=== PATIENT | female | born 1960 | race Caucasian/White ===

== ENCOUNTER → 2018-10-25 | Outpatient (CLI) | payer OTHER ==
[~2018-10-25] MED LIST: CEFD300C PO; FLUO40CA9 PO; HYDR-2155 PO; LOSA100T14 PO; OMEP20TA63 PO; OXYB5TAB7 PO
--- NOTE | 2018-10-25 12:59 | RAD ---
EXAM: Lumbar spine, 5 views. HISTORY: Pain. COMPARISON: None. FINDINGS: 5 views of the lumbar spine are obtained. There are 5 nonrib-bearing lumbar vertebral segments. There is no significant listhesis. There is degenerative endplate remodeling at all levels, predominantly at L5-S1. There is associated disc space narrowing and advanced facet arthropathy at this level. No fracture is seen. There is aortic and aortic branch vessel atherosclerosis. IMPRESSION: 1. Multilevel degenerative change involving the lumbar spine, primarily at the lumbosacral junction. 2. No acute osseous finding. Electronically signed by: Bushra Haq MD (10/25/2018 12:56 PM) [facility]
== END | disposition home or self-care (01) ==
LOC: PMG 12:05
PROVIDERS: ATTEND Physician Assistant
DX: M47.896 Other spondylosis, lumbar region (principal); M47.897 Other spondylosis, lumbosacral region; I70.0 Atherosclerosis of aorta; M48.061 Spinal stenosis, lumbar region without neurogenic claudication; M12.88 Other specific arthropathies, not elsewhere classified, other specified site
CPT/HCPCS: 72110

== ENCOUNTER 2018-12-15 12:05 | Inpatient (IN) | payer OTHER ==
[~2018-12-15] VITALS: Ht 157.5 cm; Wt 138.8 kg
[2018-12-15] MEDS ORDERED: ASPIRIN 81 MG TAB.CHEW ONE (12:38)
[2018-12-15] MEDS ORDERED: IV NORMAL SALINE 1,000ML 1,000 ML IV SCH (12:39)
[2018-12-15] MEDS ORDERED: ASPIRIN 81 MG TAB.CHEW PO ONE (13:00)
[2018-12-15 13:06] LABS: BASO % 0 % (0-3); EOS # 0.2 x10^3/uL (0.0-0.7); EOS % 4 % (0-3); HEMATOCRIT 39.5 % (36.0-47.0); HEMOGLOBIN 13.3 g/dL (12.0-15.5); LYMPH # 1.8 x10^3/uL (1.0-4.8); LYMPH % 29 % (24-48); MEAN CORPUSCULAR HEMOGLOBIN 29 pg (25-35); MEAN CORPUSCULAR HGB CONC 34 g/dL (31-37); MEAN CORPUSCULAR VOLUME 85 fL (79-100); MONO # 0.4 x10^3/uL (0.0-1.1); MONO % 7 % (0-9); NEUT # 3.7 x10^3uL (1.8-7.7); NEUT % 60 % (31-73); PLATELET COUNT 206 x10^3/uL (140-400); RED BLOOD COUNT 4.62 x10^6/uL (3.50-5.40); RED CELL DISTRIBUTION WIDTH 13.5 % (11.5-14.5); WHITE BLOOD COUNT 6.2 x10^3/uL (4.0-11.0)
--- NOTE | 2018-12-15 13:22 | RAD ---
PORTABLE CHEST 1V Clinical Indication: Chest pain Comparison: None. Findings: There is no mediastinal widening. The cardiac size is normal. Lungs are clear. There is no pneumothorax. No pleural effusion is appreciated. No acute bone abnormality. IMPRESSION: No acute cardiopulmonary process. Electronically signed by: Bhavin Zee MD (12/15/2018 1:19 PM) [id number]
[2018-12-15 13:28] LABS: ALBUMIN 3.3 g/dL (3.4-5.0); ALBUMIN/GLOBULIN RATIO 0.9 (1.0-1.7); ALK PHOS 104 U/L (46-116); ALT (SGPT) 30 U/L (14-59); ANION GAP 10 (6-14); AST (SGOT) 32 U/L (15-37); BLOOD UREA NITROGEN 15 mg/dL (7-20); BUN/CREATININE RATIO 17 (6-20); CARBON DIOXIDE 27 mmol/L (21-32); CHLORIDE 102 mmol/L (98-107); CREATININE 0.9 mg/dL (0.6-1.0); GFR 64.5; GLUCOSE 122 mg/dL (70-99); LIPASE 52 U/L (73-393); MAGNESIUM 1.8 mg/dL (1.8-2.4); POTASSIUM 4.5 mmol/L (3.5-5.1); SODIUM 139 mmol/L (136-145); TOTAL BILIRUBIN 0.4 mg/dL (0.2-1.0)
--- NOTE | 2018-12-15 13:33 | PHYS DOC ---
Past History Past Medical History: Bipolar, Depression, GERD, Hypertension, Other Past Surgical History: Cholecystectomy, Tubal ligation, Other Additional Smoking Information: vapes Drug Use: None Social History Narrative: hx meth use Adult General Chief Complaint Chief Complaint: CHEST PAIN HPI HPI Patient is a 58 year old female who presents with complaint of chest pain and shortness of breath. Patient states that her symptoms started 1 week ago. Patient states that she awoke this morning after claiming to have slept for 2 days straight and states that she is still having chest pain. Also notes upper abdominal pain. Has history of hypertension. Denies previous history of heart attack but does admit to family history of heart attack. States her pain is currently 3 out of 10. Has not taking medications for her symptoms. Currently staying at a care home house. Was recently released from senior living 2 months ago. History of methamphetamine use. States that she has not used methamphetamine since being released from senior living. States that she does feel short of breath at this time. No history of asthma or bronchitis. Review of Systems Review of Systems Constitutional: Denies fever or chills [] Eyes: Denies change in visual acuity, redness, or eye pain [] HENT: Denies nasal congestion or sore throat [] Respiratory: Shortness of breath[] Cardiovascular: Chest pain[] GI: Abdominal pain, nausea, denies vomiting, bloody stools or diarrhea [] : Denies dysuria or hematuria [] Musculoskeletal: Denies back pain or joint pain [] Integument: Denies rash or skin lesions [] Neurologic: Denies headache, focal weakness or sensory changes [] All other systems were reviewed and found to be within normal limits, except as documented in this note. Current Medications Current Medications Current Medications Medications (Trade) Dose Ordered Sig/Girma Start Time Stop Time Status Last Admin Dose Admin Aspirin (Children'S Aspirin) 324 mg 1X ONCE 12/15/18 13:00 12/15/18 13:02 DC 12/15/18 13:01 324 MG Sodium Chloride 1,000 ml @ 125 mls/hr Q8H 12/15/18 12:39 12/15/18 20:38 12/15/18 12:57 125 MLS/HR Allergies Allergies Allergies Coded Allergies Type Severity Reaction Last Updated Verified No Known Drug Allergies 12/15/18 No Physical Exam Physical Exam Constitutional: Alert, afebrile, appears anxious and in mild to moderate discomfort. [] HENT: Normocephalic, atraumatic, bilateral external ears normal, oropharynx moist, no oral exudates, nose normal. [] Eyes: PERRLA, EOMI, conjunctiva normal, no discharge. [] Neck: Normal range of motion, no tenderness, supple, no stridor. [] Cardiovascular:Heart rate regular rhythm, no murmur [] Lungs & Thorax: Bilateral breath sounds clear to auscultation [] Abdomen: Bowel sounds normal, soft, no tenderness, no masses, no pulsatile masses. [] Skin: Warm, dry, no erythema, no rash. [] Back: No tenderness, no CVA tenderness. [] Extremities: No tenderness, no cyanosis, no clubbing, ROM intact, no edema. [] Neurologic: Alert and oriented X 3, normal motor function, normal sensory function, no focal deficits noted. [] Current Patient Data Vital Signs Vital Signs Date Time Temp Pulse Resp B/P (MAP) Pulse Ox O2 Delivery O2 Flow Rate FiO2 12/15/18 13:25 71 20 100/44 (62) 97 Room Air 12/15/18 12:26 97.8 Lab Results Laboratory Tests Test 12/15/18 12:50 White Blood Count 6.2 x10^3/uL (4.0-11.0) Red Blood Count 4.62 x10^6/uL (3.50-5.40) Hemoglobin 13.3 g/dL (12.0-15.5) Hematocrit 39.5 % (36.0-47.0) Mean Corpuscular Volume 85 fL (79-100) Mean Corpuscular Hemoglobin 29 pg (25-35) Mean Corpuscular Hemoglobin Concent 34 g/dL (31-37) Red Cell Distribution Width 13.5 % (11.5-14.5) Platelet Count 206 x10^3/uL (140-400) Neutrophils (%) (Auto) 60 % (31-73) Lymphocytes (%) (Auto) 29 % (24-48) Monocytes (%) (Auto) 7 % (0-9) Eosinophils (%) (Auto) 4 % (0-3) H Basophils (%) (Auto) 0 % (0-3) Neutrophils # (Auto) 3.7 x10^3uL (1.8-7.7) Lymphocytes # (Auto) 1.8 x10^3/uL (1.0-4.8) Monocytes # (Auto) 0.4 x10^3/uL (0.0-1.1) Eosinophils # (Auto) 0.2 x10^3/uL (0.0-0.7) Basophils # (Auto) 0.0 x10^3/uL (0.0-0.2) Troponin I Quantitative < 0.017 ng/mL (0-0.055) EKG EKG Interpreted by me: Heart rate 83, sinus rhythm, normal intervals, normal axis, no acute ST/T-wave abnormalities present[] Radiology/Procedures Radiology/[place] [address] IMAGING REPORT Signed PATIENT: ROGER PRIDE ACCOUNT: [id number] : 1960 LOCATION: ER AGE: 58 SEX: F EXAM STATUS: REG ER ORD. PHYSICIAN: JOSE L VARGAS MD REASON: chest pain PROCEDURE: PORTABLE CHEST 1V PORTABLE CHEST 1V Clinical Indication: Chest pain Comparison: None. Findings: There is no mediastinal widening. The cardiac size is normal. Lungs are clear. There is no pneumothorax. No pleural effusion is appreciated. No acute bone abnormality. IMPRESSION: No acute cardiopulmonary process. Electronically signed by: Bhavin Zee MD (12/15/2018 1:19 PM) [id number] DICTATED AND SIGNED BY: BHAVIN ZEE MD DATE: 12/15/18 1319 CC: JOSE L VARGAS MD; LIANNE ZEPEDA ~ [] Course & Med Decision Making Course & Med Decision Making Pertinent Labs and Imaging studies reviewed. (See chart for details) The patient was given aspirin in the emergency department. Initial troponin level is negative. HEART score is 4. Patient was found to have evidence of urinary tract infection. Started on IV Rocephin. Patient states that she continues to have chest pain at this time. We'll admit patient for further evaluation and workup as well as treatment of urinary tract infection. I spoke with Dr. Pruitt who accepted care of patient in hospital. Jovi Disclaimer Dragon Disclaimer This electronic medical record was generated, in whole or in part, using a voice recognition dictation system. Departure Departure: Impression: Primary Impression: Chest pain Additional Impressions: Urinary tract infection Generalized weakness Disposition: ADMITTED INPATIENT Admitting Physician: Violet Pruitt Condition: STABLE Referrals: LIANNE ZEPEDA (PCP) Problem Qualifiers Primary Impression: Chest pain Chest pain type: unspecified Qualified Codes: R07.9 - Chest pain, unspecified Additional Impressions: Urinary tract infection Urinary tract infection type: site unspecified Hematuria presence: without hematuria Qualified Codes: N39.0 - Urinary tract infection, site not specified JOSE L VARGAS MD December 15, 2018 13:33
--- NOTE | 2018-12-15 13:57 | EKG ---
[address] [place] [address] [address] Test Date: 2018-12-15 Test Time: 12:25:26 Pat Name: ROGER SHANNEN Department: Room: Gender: F [employer]ic: : 1960 Requested By: JOSE L VARGAS Order Number: [id number] Reading MD: Measurements Intervals [place] Rate: 83 P: 41 NH: 172 QRS: 11 QRSD: 82 T: 12 QT: 338 QTc: 398 Interpretive Statements SINUS RHYTHM NORMAL ECG RI6.01 No previous ECG available for comparison
[2018-12-15 14:25] LABS: AMPHETAMINE/METHAMPHETAMINE NEG (NEG); BARBITURATES NEG (NEG); BENZODIAZEPINES NEG (NEG); CANNABINOIDS NEG (NEG); COCAINE NEG (NEG); METHADONE NEG (NEG); OPIATES NEG (NEG); PHENCYCLIDINE NEG (NEG)
[2018-12-15 14:29] LABS: BACTERIA,URINE MANY /HPF (0-FEW); BILIRUBIN,URINE NEG (NEG); CLARITY,URINE CLOUDY; COLOR,URINE YELLOW; GLUCOSE,URINE NEG (NEG); NITRITE,URINE POS (NEG); UROBILINOGEN,URINE 0.2 mg/dL (0.2 mg/dL); WBC,URINE >40 /HPF (0-4)
[2018-12-15 14:30] LABS: SQUAMOUS EPITHELIAL CELL,UR FEW /LPF; TRICHOMONAS,URINE PRESENT
[2018-12-15] MEDS ORDERED: ONDANSETRON PF 4 MG/2 ML VIAL. IV PRN (14:45)
[2018-12-15] MEDS ORDERED: IV NORMAL SALINE 50ML 50 ML ONE (15:23)
[2018-12-15] MEDS ORDERED: cefTRIAXone SODIUM 1 GM VIAL ONE (15:23)
[2018-12-15 16:05] VITALS: BP 101/67
--- NOTE | 2018-12-15 16:49 | PDOC2 ---
CARDIAC CONSULT DATE OF CONSULT Date Of Consult DATE: 12/15/18 TIME: 16:45 REASON FOR CONSULT Reason for Consult Chest pain REFERRING PHYSICIAN Referring Physician Dr. Tyler SOURCE Source: Chart review, Patient HPI History of Present Illness This is a 58 yo female who presented from [place] secondary to chest pain. Patient reports experience left shoulder pain for the last 2-3 days. Aching in nature. Exacerbated with certain movement. Certain movement will cause pain to radiate to her central chest. Describes as sharp pain. No associated dizziness, diaphoresis, palpitations, or nausea/vomiting. Does report intermittent nausea following eating. No h/o CAD. PAST MEDICAL HISTORY Cardiovascular: HTN Pulmonary: Asthma GI: GERD Hepatobiliary: Hep A/B/C (C) Psych: Anxiety, Addictions (methamphetamines- clean 6 years), Depression Musculoskeletal: Osteoarthritis PAST SURGICAL HISTORY Past Surgical History: Cholecystectomy, Tubal Ligation, Other (left ankle surgery ) FAMILY HISTORY Family History: Coronary Artery Disease (father ), Diabetes, Hypertension SOCIAL HISTORY Smoke: Quit (6 years ago) ALCOHOL: none Drugs: Crystal meth (quit 6 years ago) Lives: Roommate ([facility]- discharged from nursing home 2 months ago) CURRENT MEDICATIONS Current Medications Current Medications Aspirin (Children'S Aspirin) 81 mg STK-MED ONCE .ROUTE ; Start 12/15/18 at 12:38; Stop 12/15/18 at 12:39; Status DC Sodium Chloride 1,000 ml @ 125 mls/hr Q8H IV Last administered on 12/15/18at 12:57; Start 12/15/18 at 12:39; Stop 12/15/18 at 20:38 Aspirin (Children'S Aspirin) 324 mg 1X ONCE PO Last administered on 12/15/18at 13:01; Start 12/15/18 at 13:00; Stop 12/15/18 at 13:02; Status DC Ceftriaxone Sodium 1 gm/ Sodium Chloride 50 ml @ 100 mls/hr 1X ONCE IV Last administered on 12/15/18at 15:30; Start 12/15/18 at 14:45; Stop 12/15/18 at 15:14; Status DC Ondansetron HCl (Zofran) 4 mg PRN Q4HRS PRN IV NAUSEA/VOMITING; Start 12/15/18 at 14:45; Stop 12/16/18 at 14:44 Sodium Chloride 1,000 ml @ 125 mls/hr Q8H IV ; Start 12/15/18 at 14:44; Stop 12/16/18 at 14:43 Sodium Chloride 50 ml @ As Directed STK-MED ONCE .ROUTE ; Start 12/15/18 at 15:23; Stop 12/15/18 at 15:24; Status DC Ceftriaxone Sodium (Rocephin) 1 gm STK-MED ONCE .ROUTE ; Start 12/15/18 at 15:23; Stop 12/15/18 at 15:24; Status DC ALLERGIES Allergies: Coded Allergies: No Known Drug Allergies (Unverified , 12/15/18) ROS Review of Systems 14 point ROS conducted with pertinent positives noted above in HPI. PHYSICAL EXAM General: Alert, Oriented X3, Cooperative, No acute distress HEENT: Atraumatic, Mucous membr. moist/pink Lungs: Clear to auscultation, Other (left chest tenderness upon palpation) Heart: Regular rate, Normal S1, Normal S2, Other (distant heart tones) Abdomen: Soft, Other (obese ) Extremities: No edema, Normal pulses, Other (left shoulder pain with palpation) Skin: No breakdown Neuro: Normal speech, Sensation intact Psych/Mental Status: Mental status NL, Mood NL MUSCULOSKELETAL: Osteoarthritic changes both hands VITALS Vital Signs Vital Signs Date Time Temp Pulse Resp B/P (MAP) Pulse Ox O2 Delivery O2 Flow Rate FiO2 12/15/18 16:05 98.2 69 24 101/67 (78) 93 Room Air LABS LABS Laboratory Tests Test 12/15/18 12:50 12/15/18 14:03 White Blood Count 6.2 x10^3/uL (4.0-11.0) Red Blood Count 4.62 x10^6/uL (3.50-5.40) Hemoglobin 13.3 g/dL (12.0-15.5) Hematocrit 39.5 % (36.0-47.0) Mean Corpuscular Volume 85 fL (79-100) Mean Corpuscular Hemoglobin 29 pg (25-35) Mean Corpuscular Hemoglobin Concent 34 g/dL (31-37) Red Cell Distribution Width 13.5 % (11.5-14.5) Platelet Count 206 x10^3/uL (140-400) Neutrophils (%) (Auto) 60 % (31-73) Lymphocytes (%) (Auto) 29 % (24-48) Monocytes (%) (Auto) 7 % (0-9) Eosinophils (%) (Auto) 4 % (0-3) Basophils (%) (Auto) 0 % (0-3) Neutrophils # (Auto) 3.7 x10^3uL (1.8-7.7) Lymphocytes # (Auto) 1.8 x10^3/uL (1.0-4.8) Monocytes # (Auto) 0.4 x10^3/uL (0.0-1.1) Eosinophils # (Auto) 0.2 x10^3/uL (0.0-0.7) Basophils # (Auto) 0.0 x10^3/uL (0.0-0.2) Sodium Level 139 mmol/L (136-145) Potassium Level 4.5 mmol/L (3.5-5.1) Chloride Level 102 mmol/L (98-107) Carbon Dioxide Level 27 mmol/L (21-32) Anion Gap 10 (6-14) Blood Urea Nitrogen 15 mg/dL (7-20) Creatinine 0.9 mg/dL (0.6-1.0) Estimated GFR (Cockcroft-Gault) 64.5 BUN/Creatinine Ratio 17 (6-20) Glucose Level 122 mg/dL (70-99) Calcium Level 9.0 mg/dL (8.5-10.1) Magnesium Level 1.8 mg/dL (1.8-2.4) Total Bilirubin 0.4 mg/dL (0.2-1.0) Aspartate Amino Transf (AST/SGOT) 32 U/L (15-37) Alanine Aminotransferase (ALT/SGPT) 30 U/L (14-59) Alkaline Phosphatase 104 U/L (46-116) Creatine Kinase 65 U/L (26-192) Creatine Kinase MB (Mass) < 0.5 ng/mL (0.0-3.6) Creatine Kinase MB Relative Index 0.8 % (0-4) Troponin I Quantitative < 0.017 ng/mL (0-0.055) SB-Vjq-[id number]-Type Natriuretic Peptide 81 pg/mL (0-124) Total Protein 7.0 g/dL (6.4-8.2) Albumin 3.3 g/dL (3.4-5.0) Albumin/Globulin Ratio 0.9 (1.0-1.7) Lipase 52 U/L (73-393) Urine Collection Type Unknown Urine Color Yellow Urine Clarity Cloudy Urine pH 7.0 Urine Specific [place] 1.015 Urine Protein Neg (NEG-TRACE) Urine Glucose (UA) Neg mg/dL (NEG) Urine Ketones (Stick) Neg mg/dL (NEG) Urine Blood Neg (NEG) Urine Nitrite Pos (NEG) Urine Bilirubin Neg (NEG) Urine Urobilinogen Dipstick 0.2 mg/dL (0.2 mg/dL) Urine Leukocyte Esterase Mod (NEG) Urine RBC 1-2 /HPF (0-2) Urine WBC >40 /HPF (0-4) Urine Squamous Epithelial Cells Few /LPF Urine Bacteria Many /HPF (0-FEW) Urine Trichomonas Present Urine Opiates Screen Neg (NEG) Urine Methadone Screen Neg (NEG) Urine Barbiturates Neg (NEG) Urine Phencyclidine Screen Neg (NEG) Urine Amphetamine/Methamphetamine Neg (NEG) Urine Benzodiazepines Screen Neg (NEG) Urine Cocaine Screen Neg (NEG) Urine Cannabinoids Screen Neg (NEG) Urine Ethyl Alcohol Neg (NEG) ASSESSMENT/PLAN Assessment/Plan 1. Chest pain, atypical; Initial troponin negative 2. Hypertension; controlled 3. GERD 4. Hepatitis C 5. Morbid obesity 6. UTI 7. H/o methamphetamine use; clean 6 years. Recommendations Trend troponin Lipid panel Echo to assess LV systolic Resume home BP meds Treatment of UTI as per PCP Further recommendations pending above. SG HANNAH APRN December 15, 2018 16:48
[2018-12-15] MEDS ORDERED: FLUO40CA9 PO (17:11)
[2018-12-15] MEDS ORDERED: OMEP20TA63 PO (17:11)
[2018-12-15] MEDS ORDERED: LOSA100T14 PO (17:11)
[2018-12-15] MEDS ORDERED: OXYB5TAB7 PO (17:11)
--- NOTE | 2018-12-15 18:38 | HP ---
ADMIT DATE: 12/15/2018 HISTORY OF PRESENT ILLNESS: The patient is a 58-year-old female patient, who came to the Emergency Room complaining of chest pain and shortness of breath. She stated that her symptoms started about a week ago and she awoke this morning after claiming that she has slept for almost 2 days. Stated that she is still having chest pain, also notes upper abdominal pain. Denies any previous history of heart attack. She rated her pain as 3/10 in severity, is not taking any medication for her symptoms. She is currently staying assisted house. She was [facility] from [facility] 2 months ago after spending 6 years for history of amphetamine abuse. She states that she has not used any methamphetamine since being released from [facility]. She was apparently extensively investigated in the Emergency Room. Her toxic screen was negative. Her first set of cardiac enzymes showed troponin to be less than 0.017. Her urinalysis showed that she has moderate amount of leukocyte esterase, positive for nitrite, more than 40 wbc's. There are high power field and many bacteria. The patient was admitted for treatment of her urinary tract infection and to investigate her chest pain further. She did have chest x-ray that was unremarkable. PAST MEDICAL HISTORY: Significant for hypertension, hepatitis C, bronchitis, obstructive sleep apnea and generalized osteoarthritis. PAST SURGICAL HISTORY: Significant for cholecystectomy, tubal ligation, left ankle fracture, status post open reduction and internal fixation and tonsillectomy. ALLERGIES: She has no known drug allergies. MEDICATIONS: She is currently on following medications: She is on losartan potassium 100 mg once a day, fluoxetine 40 mg daily, omeprazole 20 mg daily and oxybutynin 5 mg she takes 2 tablets twice a day. FAMILY HISTORY: She has one sister living and has rheumatoid arthritis. One sister at age 19 because of motor vehicle accident. One brother of lung problems. Her father is still alive at age of 85. Mother in her 60s because of sepsis. SOCIAL HISTORY: She is , has a son and a daughter. She quit smoking 6 years ago. Does not drink alcohol and last time used amphetamine was about 6 years ago. REVIEW OF SYSTEMS: The patient denied any blurring of vision, cataract, glaucoma or macular degeneration. Denied any earache, tinnitus or sensorineural deafness. Denied any nosebleeds, stuffy nose or postnasal drip. Denied any sore throat, sore tongue. Denied any nausea, vomiting, diarrhea or constipation. Denied any hematemesis, melena or hematochezia. Denied any dysuria, frequency or hematuria. She did complain of chest pain, abdominal pain. Denied any shortness of breath. PHYSICAL EXAMINATION: GENERAL: On arrival to the Emergency Room, she looked well and was clearly in no apparent respiratory distress, slightly pale, but no jaundice, cyanosis, or thyromegaly. No jugular venous distension. No limb edema. VITAL SIGNS: Her heart rate was 84, blood pressure 155/94, temperature was 97.8, respiratory rate was 17 and oxygen saturation was 98%. HEAD, EYES, EARS, NOSE, AND THROAT: Showed normocephalic, atraumatic. NECK: Supple. HEART: Showed normal first and second heart sounds with no gallop, rub or murmur. CHEST: Clear to auscultation. No crepitation or rhonchi. ABDOMEN: Distended, soft, nontender. No guarding or rigidity. No organomegaly. All hernial orifice intact. Bowel sounds normal. NEUROLOGIC: She was awake, alert, responding appropriately. All cranial nerves intact. EXTREMITIES: She moves extremities without difficulty. She ambulates without assistance or assistive devices. LABORATORY DATA: Her white cell count was 6200, hemoglobin 13.3, hematocrit 39.5, MCV 85 and platelet count 106,000 with normal manual differential. Her chemistry showed a serum sodium 139, potassium 4.5, chloride 102, bicarbonate 27, anion gap of 10, BUN 50, creatinine 0.9, estimated GFR was 64 mL per minute. Her glucose 122, calcium was 9, magnesium was 1.8. Total bilirubin, AST, ALT, alkaline phosphatase were normal. Her first set of cardiac enzymes showed troponin to be less than 0.017. Her beta natriuretic peptide was 81. Total protein was 7, albumin 3.3, and lipase was 52. Her urinalysis showed the urine was yellow, cloudy with a pH of 7, specific gravity of 1.015. The urine was negative for protein, glucose, ketones, blood, positive for nitrite and there is moderate amount of leukocyte esterase, 1-2 rbc's, more than 40 wbc's and too many bacteria. Her urine toxic screen was essentially negative. Her chest x-ray showed that there is mediastinal widening. The cardiac size is normal. Lungs are clear. There is no pneumothorax. No pleural effusion is appreciated. No acute bony abnormalities. Her EKG showed that she was in sinus rhythm with no ST segment elevation. ASSESSMENT AND PLAN: The patient was admitted for chest pain and also treat her urinary tract infection with continued IV Rocephin. We will continue with IV fluid. We will do 2 more sets of cardiac enzyme and also fasting lipid profile and we will consult the can line examiner for further evaluation and treatment. KRISTEL YATES MD DR: NIRANJAN/rupert JOB#: [id number] / [id number]
[2018-12-15 19:37] VITALS: BP 105/68
[2018-12-15] MEDS: HYDROcodone/APAP 5/325MG 1 TAB TABLET PO PRN (20:44)
[2018-12-15] MEDS: IV NORMAL SALINE 1,000ML 1,000 ML IV SCH (20:44)
[2018-12-15] MEDS: OXYBUTYNIN CHLORIDE 5 MG TABLET PO SCH (20:44)
[2018-12-15] MEDS: LACTOBACILLUS RHAMNOSUS GG 1 CAPSULE. PO SCH (20:44)
[2018-12-15 22:13] VITALS: BP 104/66
[2018-12-16] MEDS: HYDROcodone/APAP 5/325MG 1 TAB TABLET PO PRN ×4 (00:43→15:12)
[2018-12-16] MEDS: IV NORMAL SALINE 1,000ML 1,000 ML IV SCH ×2 (05:01→07:59)
[2018-12-16 05:21] VITALS: BP 100/64
[2018-12-16 06:36] LABS: BASO % 1 % (0-3); EOS # 0.3 x10^3/uL (0.0-0.7); EOS % 4 % (0-3); HEMATOCRIT 37.7 % (36.0-47.0); HEMOGLOBIN 12.3 g/dL (12.0-15.5); LYMPH # 2.2 x10^3/uL (1.0-4.8); LYMPH % 33 % (24-48); MEAN CORPUSCULAR HEMOGLOBIN 28 pg (25-35); MEAN CORPUSCULAR HGB CONC 33 g/dL (31-37); MEAN CORPUSCULAR VOLUME 86 fL (79-100); MONO # 0.5 x10^3/uL (0.0-1.1); MONO % 8 % (0-9); NEUT # 3.6 x10^3uL (1.8-7.7); NEUT % 55 % (31-73); PLATELET COUNT 197 x10^3/uL (140-400); RED BLOOD COUNT 4.37 x10^6/uL (3.50-5.40); RED CELL DISTRIBUTION WIDTH 13.9 % (11.5-14.5); WHITE BLOOD COUNT 6.5 x10^3/uL (4.0-11.0)
[2018-12-16 06:37] LABS: CALCIUM 8.4 mg/dL (8.5-10.1); CREATININE 0.9 mg/dL (0.6-1.0); GFR 64.5; POTASSIUM 3.8 mmol/L (3.5-5.1)
[2018-12-16] MEDS ORDERED: PANTOPRAZOLE 40 MG TABLET. PO SCH (07:30)
[2018-12-16] MEDS: OXYBUTYNIN CHLORIDE 5 MG TABLET PO SCH (07:59)
[2018-12-16] MEDS: LACTOBACILLUS RHAMNOSUS GG 1 CAPSULE. PO SCH (08:00)
[2018-12-16] MEDS ORDERED: FLUoxetine HCL 20 MG CAPSULE PO SCH (09:00)
[2018-12-16] MEDS ORDERED: LOSARTAN 50 MG TABLET. PO SCH (09:00)
[2018-12-16 10:50] VITALS: BP 104/68
[2018-12-16] MEDS ORDERED: CEFD300C PO (13:43)
[2018-12-16] MEDS ORDERED: HYDR-2155 PO (13:44)
--- NOTE | 2018-12-16 14:26 | DS ---
DATE OF DISCHARGE: HISTORY OF PRESENT ILLNESS: The patient is a 58-year-old female patient, currently in skilled nursing house, who came to the Emergency Room complaining of chest pain and shortness of breath. She rated her pain as about 3/10 in severity, is not taking any medication for the symptoms. Denied any nausea, vomiting, or diaphoresis. She has pain in her left shoulder and she was basically admitted to rule out myocardial infarction and also was found to have urinary tract infection, was started on ceftriaxone. She has had 3 sets of cardiac enzymes that were negative with a troponin less than 0.017. Her urinalysis was positive for nitrite and moderate amount of leukocyte esterase and more than 40 WBCs and many bacteria, although the culture is not available yet. She has ruled out myocardial infarction and it was felt that the pain is probably related to her cervical spine. Decision was made to discharge her back to the [facility], [place], operated by [facility] to continue the oral antibiotic in the form of cefdinir 300 mg twice a day and we have made arrangements for her to be seen by primary care physician, Dr. Lopez, to arrange for an MRI of her cervical spine. Meanwhile, she can continue with all her medications and also was given a prescription for hydrocodone/APAP 5/325 one tablet every 6 hours. PHYSICAL EXAMINATION: GENERAL: When I saw her this afternoon, she looked well and was clearly in no apparent respiratory distress. No pallor, jaundice, cyanosis, or thyromegaly. No jugular venous distention. No limb edema. VITAL SIGNS: Her heart rate was 62, blood pressure was 104/68, temperature was 98.5, respiratory rate was 20, and oxygen saturation was 95%. HEAD, EYES, EARS, NOSE, AND THROAT: Showed normocephalic, atraumatic. NECK: Supple. HEART: Showed normal first and second heart sounds. No gallop, rub, or murmur. CHEST: Clear to auscultation. No crepitation or rhonchi. ABDOMEN: Distended, soft, nontender. NEUROLOGIC: She was awake, alert, responding appropriately. All cranial nerves intact. EXTREMITIES: She moved extremities without difficulty. She ambulates without assistance or assistive devices. LABORATORY DATA: Her lab work this morning showed her white cell count 6500, hemoglobin 12, hematocrit 37, MCV 86, and platelet count of 197,000. Her chemistry showed serum sodium 140, potassium 3.8, chloride 105, bicarbonate 28, anion gap of 7, BUN 16, and creatinine was 0.9, estimated GFR was 65 mL per minute. Her glucose 122, calcium was 8.4. DISCHARGE MEDICATIONS: She was discharged to skilled nursing house to continue on cefdinir 300 mg twice a day for 5 more days, hydrocodone/APAP 5/325 one tablet every 6 hours for 7 more days, fluoxetine for Prozac 40 mg daily, losartan potassium 100 mg once a day, omeprazole for Prilosec 20 mg daily, and oxybutynin 10 mg twice a day. FINAL DISCHARGE DIAGNOSES: Chest pain, myocardial infarction ruled out; hypertension; urinary tract infection; pain, both shoulders, probably radiating from her cervical spine, for which we have arranged for her to have an MRI of the cervical spine. Has an appointment to follow with her primary care physician on 12/20/2018. KRISTEL YATES MD DR: NIRANJAN/rupert JOB#: [id number] / [id number]
[2018-12-16] MEDS ORDERED: OXYBUTYNIN CHLORIDE 5 MG TABLET PO SCH (21:00)
--- NOTE | 2018-12-20 10:55 | CARD ---
MR#: [id number] Date of Study: 12/16/2018 Ordering Physician: SG HANNAH, Referring Physician: KRISTEL YATES, Tech: Nadine Mcmahon APPROVED REPORT EXAM: Two-dimensional and M-mode echocardiogram with Doppler and color Doppler. Other Information Quality : AverageHR: 67bpm Rhythm : NSRTechnically limited study due to body habitus and smoking. INDICATION COPD Chest Pain RISK FACTORS Hypertension Previous smoker 2D DIMENSIONS RVDd2.8 (2.9-3.5cm)Left Atrium(2D)3.9 (1.6-4.0cm) IVSd0.9 (0.7-1.1cm)Aortic Root(2D)2.9 (2.0-3.7cm) LVDd5.2 (3.9-5.9cm)LVOT Diameter2.0 (1.8-2.4cm) PWd1.0 (0.7-1.1cm)LVDs3.2 (2.5-4.0cm) FS (%) 37.9 %SV88.1 ml LVEF(%)67.6 (>50%) Aortic Valve AoV Peak Gurpreet.156.1cm/sAoV VTI29.3cm AO Peak GR.9.7mmHgLVOT Peak Gurpreet.103.8cm/s LVOT VTI 24.02cmAO Mean GR.5mmHg JULISSA (VMAX)2.15xp8GNR (VTI)2.69cm2 Mitral Valve MV E Ubwswqnb55.8cm/sMV DECEL DQKJ879ay MV A Bojrtdgy74.1cm/sE/A Ratio0.9 Pulmonary Valve PV Peak Aqfcthjz30.1cm/sPV Peak Grad.4mmHg Tricuspid Valve TR P. Jlaccibw470tz/sRAP VVVNAVLA1exOk TR Peak Gr.14fsRzTRPO26dxLo Pulmonary Vein S1 Kfalsbul87.1cm/sD2 Wisqbtnw03.6cm/s LEFT VENTRICLE The left ventricle is normal size. There is normal left ventricular wall thickness. The left ventricu lar systolic function is normal. The Ejection Fraction is 60-65%. There is normal LV segmental wall m otion. Transmitral Doppler flow pattern is Grade II-pseudonormal filling dynamics. RIGHT VENTRICLE The right ventricle is normal size. There is normal right ventricular wall thickness. The right ventr icular systolic function is normal. ATRIA The left atrium size is normal. The right atrium size is normal. The interatrial septum is intact wit h no evidence for an atrial septal defect or patent foramen ovale as noted on 2-D or Doppler imaging. AORTIC VALVE The aortic valve is normal in structure and function. Doppler and Color Flow revealed no significant aortic regurgitation. There is no significant aortic valvular stenosis. MITRAL VALVE The mitral valve is thickened but opens well. There is no evidence of mitral valve prolapse. There is no mitral valve stenosis. Doppler and Color Flow revealed no mitral valve regurgitation noted. TRICUSPID VALVE The tricuspid valve is normal in structure and function. Doppler and Color Flow revealed trace tricus pid regurgitation with an estimated PAP of 31 mmHg. There is no tricuspid valve stenosis. PULMONIC VALVE The pulmonary valve is normal in structure and function. Doppler and Color Flow revealed trace pulmon ic valvular regurgitation. GREAT VESSELS The aortic root is normal in size. The IVC is normal in size and collapses >50% with inspiration. PERICARDIAL EFFUSION There is no evidence of significant pericardial effusion. Critical Notification Critical Value: No <Conclusion> The left ventricular systolic function is normal. The Ejection Fraction is 60-65%. There is normal LV segmental wall motion. Trace tricuspid regurgitation with an estimated PAP of 31 mmHg. There is no evidence of significant pericardial effusion. Signed by : Florian Escobar, Electronically Approved : 12/16/2018 11:28:59
== END 2018-12-16 15:57 | disposition home or self-care (01) | DRG 690 ==
LOC: ER 12:05 → 1 SOUTH 15:41
PROVIDERS: ADMIT Internal Medicine; ATTEND Internal Medicine
DX: N39.0 Urinary tract infection, site not specified (principal); Z68.43 Body mass index [BMI] 50.0-59.9, adult; R07.89 Other chest pain; B19.20 Unspecified viral hepatitis C without hepatic coma; E66.01 Morbid (severe) obesity due to excess calories; G47.33 Obstructive sleep apnea (adult) (pediatric); I10 Essential (primary) hypertension; J45.909 Unspecified asthma, uncomplicated; K21.9 Gastro-esophageal reflux disease without esophagitis; M15.9 Polyosteoarthritis, unspecified; Z82.49 Family history of ischemic heart disease and other diseases of the circulatory system; Z87.891 Personal history of nicotine dependence; Z83.3 Family history of diabetes mellitus; F32.9 Major depressive disorder, single episode, unspecified; F41.9 Anxiety disorder, unspecified
CPT/HCPCS: 36415; 71045; 80048; 80053; 80061; 80307; 81001; 82553; 83690; 83735; 83880; 84484; 85025; 87086; 87186; 87641; 93005; 93306; 96361; 96365; J0696; 99285-25; J7030

== ENCOUNTER → 2019-01-03 | Outpatient (CLI) | payer OTHER ==
[2018-12-16 10:50] VITALS: BP 104/68
--- NOTE | 2019-01-03 16:01 | RAD ---
EXAM: AP, bilateral oblique, lateral and open-mouth odontoid views of the cervical spine DATE: 01/03/2019 12:00 AM CLINICAL HISTORY: Progressing neck pain COMPARISON: None available. FINDINGS: On the lateral view, the cervical spine is imaged from the skull base to C7. Vertebral body heights are preserved. Mild C4-5 and moderate C5-6, C6-7 disc height loss. Straightening of the normal cervical lordosis. No spondylolisthesis. Oblique views demonstrate moderate bilateral C4-5 and C5-6 neural foraminal narrowing from facet degenerative change and uncovertebral hypertrophy. Normal predental space. No significant prevertebral soft tissue swelling. There is no offset of the lateral masses of C1 on C2. IMPRESSION: 1. Multilevel spondylosis as above 2. Negative acute fracture or subluxation. Electronically signed by: Yaniv Hernandez MD (01/03/2019 3:58 PM) [id number]
== END | disposition home or self-care (01) ==
LOC: PMG 10:19
PROVIDERS: ATTEND Physician Assistant
DX: M47.812 Spondylosis without myelopathy or radiculopathy, cervical region (principal); M48.02 Spinal stenosis, cervical region
CPT/HCPCS: 72050